=== PATIENT | male | born 1970 | race African-American/Black ===

== ENCOUNTER 2017-04-22 11:59 | Emergency (ER) | payer OTHER ==
[~2017-04-22] VITALS: Ht 172.7 cm; Wt 81.6 kg
--- NOTE | 2017-04-22 13:04 | PHYS DOC ---
Adult General Chief Complaint Chief Complaint: HYPERTENSION HPI HPI Patient is a 46 year old gentleman who presents to ER today for evaluation of hypertension. Patient reports that he was at a job application and body was there his blood pressure was 184/90 and so they told him that he needed to be evaluated by primary care physician for his hypertension. Patient reports that he was anxious during this time.. Patient denies any other symptomology. Patient has any fevers shakes chills nausea vomiting diarrhea chest pain shortness of breath cough cold Raynaud's. Patient denies any history of hypertension diabetes liver longer kidney problems. Patient does not smoke drink or do any drugs. Review of systems: Constitutional: Denies fever or chills Eyes: Denies change in visual acuity, redness, or eye pain HENT: Denies nasal congestion or sore throat All other review systems are negative except as documented in the history of present illness portion. Physical exam: Constitutional: Well developed, well nourished, no acute distress, non-toxic appearance. HENT: Normocephalic, atraumatic, bilateral external ears normal, nose normal. Eyes: EOMI, conjunctiva normal, no discharge. Neck: Normal range of motion, no tenderness, supple, no stridor. Cardiovascular:Heart rate regular rhythm Lungs & Thorax: Bilateral breath sounds clear to auscultation no respiratory distress Abdomen: Bowel sounds normal, soft, no tenderness, no masses, no pulsatile masses. Skin: Warm, dry, no erythema, no rash. Back: No tenderness, no CVA tenderness. Extremities: No tenderness, no cyanosis, no clubbing, ROM intact, no edema. Neurologic: Alert and oriented X 3, normal motor function, normal sensory function, no focal deficits noted. Psychologic: Affect normal, judgement normal, mood normal. Assessment and plan Patient seen and evaluated the ER for hypertension. Patient's blood pressure is 148/77 here. Patient's repeat blood pressure 145/85. I discussed with the patient and his and apparently the patient was extremely anxious and his new job when he was having his physical exam done. Patient currently does not have hypertension. Patient does have high blood pressure likely secondary to anxiety. Patient will be discharged from the ED without further intervention at this time. Patient will be instructed to follow-up with a primary care physician for further evaluation. EKG EKG [] Radiology/Procedures Radiology/Procedures [] Course & Med Decision Making Course & Med Decision Making Pertinent Labs and Imaging studies reviewed. (See chart for details) [] Dragon Disclaimer Dragon Disclaimer This electronic medical record was generated, in whole or in part, using a voice recognition dictation system. Departure Departure Impression: Primary Impression: Elevated blood pressure reading Disposition: HOME, SELF-CARE Condition: IMPROVED Referrals: NO PCP (PCP) Patient Instructions: Form - Blood Pressure Record Sheet, Hypertension Additional Instructions: Thank you for allowing us to participate in your care today. Followup with your primary care physician in 3 days if your symptoms do not improve. Call your Primary Doctor tomorrow and inform them of your visit today. If you do not have a primary care provider you can ask for a list of our primary care providers. Return to the emergency department you have any new or concerning findings. This should be evaluated by the primary care physician and any necessary consulting services for continued management within a few days after discharge. Return to emergency room if you have any new or concerning symptoms including but not limited to fever, chills, nausea, vomiting, intractable pain, any new rashes, chest pain, shortness of air, uncontrolled bleeding, difficulty breathing, and/or vision loss. You may have been prescribed medication that can change in your level of thinking and ability to operate machinery. These medications include hydrocodone and Ativan. Also, Benadryl has been known to do this as well. Be sure to check with your pharmacist and ask if the medications you've prescribed can affect your level of consciousness. I recommend not operating heavy machinery or driving while on medication such as these. Please follow up your family doctor to further evaluate your levator blood pressure. Your blood pressure today is not high enough to warrant treatment in the emergency department. KADE CHILD MD Apr 22, 2017 13:04
[2017-04-22 13:18] VITALS: BP 132/83
== END 2017-04-22 13:19 | disposition home or self-care (01) ==
LOC: ER 11:59
DX: I10 Essential (primary) hypertension (principal)
CPT/HCPCS: 99283